=== PATIENT | male | born 1965 | race African-American/Black ===

== ENCOUNTER 2024-08-02 21:18 | Emergency (ER) | payer OTHER ==
[2024-08-02] MEDS ORDERED: Magnesium 2 GM/50 ML BAG (IN WATER) ONE (21:43)
[2024-08-02 22:53] LABS: #Basophils 0.03 10x3/uL (0.0-0.2); #Eosinophils 0.11 10x3/uL (0.0-0.5); #Neutrophils 7.51 10x3/uL (1.5-8.4); %Basophils 0.3 % (0.0-2.0); %Eosinophils 1.2 % (0.0-6.0); %Lymphocytes 10.2 % (18.0-47.0); %Monocytes 6.5 % (0.0-10.0); %Neutrophils 81.5 % (40.0-75.0); Hematocrit 42.2 % (38.8-50.0); Mean Corpuscular HGB CONC 33.2 g/dL (32.0-36.0); Mean Corpuscular Hemoglobin 29.4 pg (27.0-33.0); Mean Corpuscular Volume 88.5 fL (81.2-95.1); Mean Platelet Volume 9.6 fL (7.4-10.4); Platelet Count 252 10x3/uL (150-450); RBC Distribution Width 12.1 % (11.5-14.5); Red Blood Cell (RBC) Count 4.77 10x6/uL (4.32-5.72); White Blood Cell (WBC) Count 9.2 10x3/uL (3.5-10.5)
[2024-08-02] MEDS ORDERED: Amlodipine 5 MG TAB ONE (22:54)
[2024-08-02 23:14] LABS: ALT (SGPT) 17 U/L (8-55); AST (SGOT) 18 U/L (5-34); Alkaline Phosphatase 96 U/L (40-110); Anion Gap 14 mmol/L (10-20); BUN (Urea Nitrogen) 13 mg/dL (8.4-25.7); Bilirubin, Total 0.4 mg/dL (0.2-1.2); Calc. Creatinine Clearance 0 mL/min (70-130); Calcium 9.4 mg/dL (7.8-10.44); Carbon Dioxide 24 mmol/L (23-31); Chloride 103 mmol/L (98-107); Estimated GFR 68; Globulin 4.3 g/dL (2.4-3.5); Glucose 109 mg/dL (80-115); Potassium 3.9 mmol/L (3.5-5.1); Protein, Total 8.3 g/dL (5.8-8.1); Sodium 137 mmol/L (136-145)
[2024-08-02 23:20] LABS: Troponin I Less than 0.010 ng/mL (< 0.028)
== END 2024-08-02 23:50 ==
LOC: CSHERS 21:18
DX: J44.1 Chronic obstructive pulmonary disease with (acute) exacerbation (principal); I10 Essential (primary) hypertension; K21.9 Gastro-esophageal reflux disease without esophagitis; Z79.51 Long term (current) use of inhaled steroids; Z55.6 Problems related to health literacy; Z79.899 Other long term (current) drug therapy
CPT/HCPCS: 36415; 71045; 80053; 83880; 84484; 85025; 93005; 93010; 96365; J3475

== ENCOUNTER 2025-06-13 14:24 | Emergency (ER) | payer OTHER ==
[~2025-06-13 14:24] MED LIST: Iopamidol 370 76% 100 ML VIAL ONE
[2025-06-13] MEDS ORDERED: Albuterol 2.5 MG (3 mL) NEB ONE (15:21)
[2025-06-13 16:05] LABS: Hematocrit 38.5 % (38.8-50.0); Hemoglobin 13.0 g/dL (13.5-17.5); Mean Corpuscular Volume 86.1 fL (81.2-95.1); Red Blood Cell (RBC) Count 4.47 10x6/uL (4.32-5.72); White Blood Cell (WBC) Count 11.54 10x3/uL (3.5-10.5)
[2025-06-13 16:06] LABS: #Neutrophils 9.60 10x3/uL (1.5-8.4); %Basophils 0.3 % (0.0-2.0); %Eosinophils 4.3 % (0.0-6.0); %Lymphocytes 5.6 % (18.0-47.0); %Monocytes 6.2 % (0.0-10.0); %Neutrophils 83.3 % (40.0-75.0); Mean Corpuscular Hemoglobin 29.1 pg (27.0-33.0); Platelet Count 206 10x3/uL (130-400)
[2025-06-13 16:07] LABS: #Basophils 0.03 10x3/uL (0.0-0.2); #Eosinophils 0.50 10x3/uL (0.0-0.5); #Monocytes 0.72 10x3/uL (0.0-1.1); ALT (SGPT) 14 U/L (Less than 45); AST (SGOT) 21 U/L (11-34); Albumin 3.9 g/dL (3.1-4.5); Alkaline Phosphatase 84 U/L (40-110); Anion Gap 16 mmol/L (10-20); BUN (Urea Nitrogen) 11 mg/dL (8.4-25.7); Bilirubin, Total 0.5 mg/dL (0.3-1.2); Calc. Creatinine Clearance 0 mL/min (70-130); Calcium 8.6 mg/dL (7.8-10.44); Carbon Dioxide 20 mmol/L (23-31); Chloride 106 mmol/L (98-107); Globulin 4.3 g/dL (2.4-3.5); Glucose 102 mg/dL (80-115); Potassium 4.1 mmol/L (3.5-5.1); Sodium 138 mmol/L (136-145)
[2025-06-13 16:08] LABS: Troponin I Less than 0.010 ng/mL (< 0.028)
[2025-06-13 17:48] LABS: Troponin I Less than 0.010 ng/mL (< 0.028)
== END 2025-06-13 18:28 | disposition home or self-care (01) ==
LOC: CSHERS 14:24 → EEVIPCON 14:24 → CSHERS 18:28
DX: R07.9 Chest pain, unspecified (principal); R06.02 Shortness of breath; I10 Essential (primary) hypertension; J44.9 Chronic obstructive pulmonary disease, unspecified; I25.10 Atherosclerotic heart disease of native coronary artery without angina pectoris; I25.2 Old myocardial infarction; Z87.891 Personal history of nicotine dependence
CPT/HCPCS: 36415; 71045; 71275; 80053; 83880; 84484; 85025; 87426; 93005; 93010; 94640; 94644; 94760; J2919; J7611